=== PATIENT | male | born 1960 | race Caucasian/White ===

== ENCOUNTER → 2022-09-15 | Outpatient (CLI) | payer BC, SELFPAY ==
--- NOTE | 2022-09-15 07:00 | RAD_ITS ---
INDICATION: MRI CLEARANCE EXAMINATION/TECHNIQUE: X-RAY - XR Orbits Clearance FB COMPARISON: None. FINDINGS: There is no evidence of radiopaque foreign body in the orbits. Negative paranasal sinuses. RAD/Orbits for Foreign Body IMPRESSION: There is no evidence of radiopaque foreign body in the orbits. Electronically Signed: Milo Burgess MD at 7:21 EDT ,
--- NOTE | 2022-09-15 07:07 | MRI_ITS ---
STUDY: MRI CERVICAL SPINE REASON FOR EXAM: Male, 62 years old. CERVICAL RADICULOPATHY TECHNIQUE: MRI examination cervical spine fusion protocol including multiplanar multiecho noncontrast imaging. Contrast: No contrast administered. COMPARISON: None FINDINGS: Vertebral bodies and alignment: 1. Vertebral body height and alignment are maintained. There is mild straightening of cervical lordosis. No evidence of marrow edema, fracture or subluxation. 2. Prevertebral soft tissue planes have normal appearance. 3. Normal appearance the odontoid process and alignment of the craniocervical junction. 4. Normal appearance the posterior muscular fascial planes of the cervical spine, and the posterior ligamentous support structure the cervical spine is intact. Intervertebral disc levels: C2-3: Normal endplates. Normal disc height, signal and morphology. Normal central canal and intervertebral neural foramina. C3-4: Mild disc desiccation, facet hypertrophic changes and uncovertebral joint hypertrophy with mild foraminal narrowing greater on the RIGHT than LEFT. No jannette nerve root impingement. C4-5: Mild disc desiccation, minimal disc bulge and osteophyte without disc herniation or canal stenosis. Bilateral foraminal narrowing greater on the LEFT than RIGHT contributed by uncovertebral joint hypertrophic changes and facet arthropathy. Potential early L5 nerve root impingement greater on the LEFT than RIGHT. C5-6: Disc desiccation, broad-based concentric disc protrusion and osteophyte complex, no jannette canal stenosis however significant bilateral lateral recess and foraminal narrowing contributed by facet and uncovertebral joint hypertrophic changes. Potential bilateral C6 nerve root impingement. C6-7: Disc desiccation, broad-based posterior disc bulge without evidence canal stenosis. There is compromise of the lateral recesses and neural foramina however greater on the LEFT than RIGHT with potential bilateral C7 nerve root impingement. C7-T1: Normal endplates. Normal disc height, signal and morphology. Normal central canal and intervertebral neural foramina. Spinal CORD: There is normal appearance the spinal cord. No intramedullary signal abnormality, masses or syrinx. Normal appearance of the cervical medullary junction. No evidence cord compression. MRI/Spine Cervical (Routine) IMPRESSION: 1. Moderate multilevel disc changes with broad-based disc bulges without acute disc herniation or acutely acquired canal stenosis. 2. Multilevel foraminal narrowing however noted secondary to facet and ligamentum flavum hypertrophic changes. Moderate to severe foraminal narrowing with potential nerve root impingement particularly at C4-5 with potential of early C5 nerve root impingement greater on the LEFT than RIGHT, similar findings at C5-6 and C6-7 as detailed. Potential of bilateral C6 nerve root impingement within the neural foramina and bilateral C7 nerve root impingement greater on the LEFT than RIGHT. 3. Normal appearance of the spinal cord without evidence of cord compression or signal abnormality. Electronically Signed: Carroll Yuan MD at 0:34 EDT ,
== END | disposition home or self-care (01) ==
PROVIDERS: PCP Family Medicine; Referring Provider Family Medicine; Visit Provider Family Medicine
DX: M54.12 Radiculopathy, cervical region (principal)
CPT/HCPCS: 70030; 72141